=== PATIENT | male | born 1960 | race African-American/Black ===

== ENCOUNTER 2023-03-12 19:42 | Emergency (ER) | payer SELFPAY ==
[~2023-03-12] VITALS: Ht 188 cm; Wt 104.3 kg
[2023-03-12 19:50] VITALS: BP 147/90; PULSE 78; RESP 17; TEMP 97.6; O2SAT 99
--- NOTE | 2023-03-12 19:53 | NUR ---
TO LOBBY A/W BED AMBULATORY
--- NOTE | 2023-03-12 20:53 | NUR ---
Dr. Wellington examining patient.
[2023-03-12 21:02] VITALS: BP 132/78; PULSE 71; RESP 16; TEMP 97.6; O2SAT 99
--- NOTE | 2023-03-12 21:02 | NUR ---
Patient discharged with v/s stable. Written and verbal after care instructions given and explained. Patient verbalized understanding. Ambulatory with steady gait. All questions addressed prior to discharge. Advised to follow up with PMD.
== END 2023-03-12 21:10 | disposition home or self-care (01) ==
LOC: MED 19:42
DX: R04.0 Epistaxis (principal); I10 Essential (primary) hypertension
CPT/HCPCS: 99281